=== PATIENT | male | born 1960 | race Caucasian/White ===

== ENCOUNTER 2018-06-21 14:56 | Outpatient (CLI) | payer OTHER ==
--- NOTE | 2018-06-21 17:00 | RAD ---
MRI SAFETY PIERCE SINUS 06/21/18 PROVIDED CLINICAL HISTORY: MRI safety. FINDINGS: Frontal images of the orbits was obtained for the purposes of exclusion of metallic foreign body in t he region of the orbits. There is no evidence for such. IMPRESSION: As above. POS: [facility]
--- NOTE | 2018-06-21 18:23 | MRI ---
MRI OF THE ABDOMEN WITHOUT AND WITH CONTRAST 06/21/18 COMPARISON: None. HISTORY: Chronic pancreatitis. Cyst in head of pancreas. TECHNIQUE: Multiplanar and multisequence MRI images are obtained of the abdomen without and with IV contrast. FINDINGS: The liver, gallbladder, kidneys, adrenal glands, spleen, and pancreas are unremarkable. No edema is s een surrounding the pancreas to suggest acute pancreatitis. No pseudocyst or cyst is seen in the panc reas on this examination. MRCP images shows a normal caliber common bile duct and pancreatic duct. No abdominal adenopathy is seen. No marrow signal abnormality is present. IMPRESSION: Unremarkable exam. POS: [facility]
== END 2018-06-21 14:57 | disposition home or self-care (01) ==
LOC: BICMRI 14:56
DX: K86.2 Cyst of pancreas (principal)
CPT/HCPCS: 70210; 74183

== ENCOUNTER 2018-08-24 10:47 | Outpatient (CLI) | payer OTHER ==
--- NOTE | 2018-08-24 16:26 | RAD ---
LEFT HAND THREE VIEWS: 08/24/18 HISTORY: Pain. Arthritis. Mild degenerative changes of the first carpometacarpal joint with mild spurring. Narrowing and degenerative changes seen at the MCP joints. Degenerative spurring most pronounced at t he first, second and third MCP joints. Minimal degenerative change at the IP joints. IMPRESSION: There are degenerative change at the MCP joints, most prominent involving the first, second and third MCP joints with joint narrowing and hypertrophic spur at these joints. Mild DJD at the first carpome tacarpal also noted. POS: [facility]
--- NOTE | 2018-08-24 16:30 | RAD ---
THREE VIEWS RIGHT HAND: 08/24/18 HISTORY: Arthritis right hand. AP, lateral and oblique views right hand is obtained. Images demonstrate significant joint space narrowing in the second metacarpophalangeal joint. Modera te joint space narrowing and osteophytes also seen in the first carpometacarpal joint as well as the first metacarpophalangeal joints. Findings compatible with osteoarthritis. The interphalangeal joints are unremarkable. The third, fourth and fifth metacarpophalangeal joints are also unremarkable. 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 POS: [facility]
--- NOTE | 2018-08-24 16:33 | RAD ---
LEFT WRIST: 08/24/18 Three views. HISTORY: Pain. Arthritis. Mild DJD at the first carpometacarpal with mild spurring at this joint. The intercarpal joints are un remarkable. Radiocarpal joint unremarkable. Carpals appear normally aligned. Moderate DJD noted at th e first MCP joint. See hand films. IMPRESSION: Mild DJD at the first carpometacarpal. POS: [facility]
--- NOTE | 2018-08-24 16:35 | RAD ---
RIGHT WRIST: 08/24/18 Three views. HISTORY: Pain. Arthritis. Moderate to severe DJD at the first carpometacarpal joint. There is joint narrowing, articular sclero sis and hypertrophic change at this joint. Intercarpal joints unremarkable. Cystic changes are seen in the distal scaphoid and in the lunate and trapezium. IMPRESSION: Moderate to severe degenerative changes at the first carpometacarpal joint. POS: [facility]
== END 2018-08-24 10:48 | disposition home or self-care (01) ==
LOC: BICRAD 10:47
PROVIDERS: ATTEND Internal Medicine
DX: M25.531 Pain in right wrist (principal); M25.532 Pain in left wrist; M79.641 Pain in right hand; M79.642 Pain in left hand; M18.0 Bilateral primary osteoarthritis of first carpometacarpal joints; M19.041 Primary osteoarthritis, right hand; M19.042 Primary osteoarthritis, left hand; M77.9 Enthesopathy, unspecified

== ENCOUNTER 2022-04-28 14:09 | Emergency (ER) | payer OTHER ==
[2022-04-28 14:51] LABS: #Basophils 0.1 thou/uL (0.0-0.2); #Eosinphils 0.3 thou/uL (0.0-0.7); #Lymphocytes 2.1 thou/uL (1.20-3.40); #Monocytes 2.2 thou/uL (0.11-0.59); #Neutrophils 10.9 thou/uL (1.40-6.50); %Basophils 0.5 % (0.0-1.0); %Eosinophils 1.6 % (0.0-10.0); %Lymphocytes 13.6 % (21.0-51.0); %Monocytes 14.4 % (0.0-10.0); %Neutrophils 69.9 % (42.0-75.0); Hemoglobin 14.7 g/dL (14.0-18.0); Mean Corpuscular HGB CONC 34.5 g/dL (32.0-36.0); Mean Corpuscular Hemoglobin 30.7 pg (27.0-31.0); Mean Corpuscular Volume 88.9 fL (78.0-98.0); Mean Platelet Volume 7.9 fL (7.4-10.4); Platelet Count 363 thou/uL (130-400); RBC Distribution Width 14.7 % (11.5-14.5); Red Blood Cell (RBC) Count 4.78 mill/uL (4.70-6.10); White Blood Cell (WBC) Count 15.5 thou/uL (4.8-10.8)
[2022-04-28 15:24] LABS: ALT (SGPT) 19 U/L (8-55); AST (SGOT) 15 U/L (5-34); Albumin 4.5 g/dL (3.4-4.8); Alkaline Phosphatase 133 U/L (40-110); Anion Gap 18 mmol/L (10-20); BUN (Urea Nitrogen) 17 mg/dL (8.4-25.7); Bilirubin, Total 0.4 mg/dL (0.2-1.2); Calc. Creatinine Clearance 0 mL/min (70-130); Carbon Dioxide 23 mmol/L (23-31); Chloride 102 mmol/L (98-107); Estimated GFR 82; Globulin 3.1 g/dL (2.4-3.5); Glucose 78 mg/dL (80-115); Potassium 3.9 mmol/L (3.5-5.1); Protein, Total 7.6 g/dL (5.8-8.1); Sodium 139 mmol/L (136-145)
[2022-04-28] MEDS ORDERED: Ketorolac Tromethamine 30 MG/ML VIAL ONE (15:47)
[2022-04-28] MEDS ORDERED: Clindamycin/D5W 900 mg/50 ml Premix Bag ONE (15:59)
[2022-04-28] MEDS ORDERED: Dexamethasone 10 MG/ML VIAL ONE (15:59)
[2022-04-28 16:00] LABS: PTT 32.1 sec (22.9-36.1); Prothrombin Time 13.2 sec (12.0-14.7)
== END 2022-04-28 17:04 | disposition home or self-care (01) ==
LOC: ERS 14:09
DX: K04.7 Periapical abscess without sinus (principal); F17.210 Nicotine dependence, cigarettes, uncomplicated; Z79.899 Other long term (current) drug therapy
CPT/HCPCS: 36415; 36416; 80053; 83605; 85025; 85610; 85730; 87040; 93005; 94760; 96361; 96374; 96375; J1100; J1885; J3490